=== PATIENT | male | born 1970 | race Caucasian/White ===

== ENCOUNTER 2019-09-24 14:17 | Outpatient (CLI) | payer BC, OTHER ==
--- NOTE | 2019-09-25 14:33 | XRAY Report ---
Reason: RIGHT SHOULDER PAIN Procedure Date: 09/24/2019 Accession Number: [id number] / [id number] Procedure: WCP - Shoulder 2 View RT CPT Code: Final Report FULL RESULT: EXAM: RIGHT SHOULDER RADIOGRAPHY EXAM DATE: 09/24/2019 02:17 PM. CLINICAL HISTORY: RIGHT SHOULDER PAIN. COMPARISON: None. TECHNIQUE: 2 views. FINDINGS: Bones: No fracture. No bone lesion. Decreased acromiohumeral interval. Joints: The glenohumeral and acromioclavicular joints are normal. Soft tissues: The visualized hemithorax is unremarkable. No soft tissue swelling. IMPRESSION: 1. No fracture or dislocation. 2. Decreased acromiohumeral interval may indicate rotator cuff tendinopathy or tear [facility]
--- NOTE | 2019-09-25 14:34 | XRAY Report ---
Reason: LEFT SHOULDER PAIN Procedure Date: 09/24/2019 Accession Number: [id number] / [id number] Procedure: WCP - Shoulder 2 View LT CPT Code: Final Report FULL RESULT: EXAM: LEFT SHOULDER RADIOGRAPHY EXAM DATE: 09/24/2019 02:17 PM. CLINICAL HISTORY: LEFT SHOULDER PAIN. COMPARISON: None. TECHNIQUE: 2 views. FINDINGS: Bones: No fracture. No bone lesion. Decreased acromiohumeral interval. Joints: No dislocation. Glenohumeral osteoarthritis with humeral head osteophytosis. Soft tissues: The visualized hemithorax is unremarkable. No soft tissue swelling. IMPRESSION: 1. No fracture or dislocation. 2. Glenohumeral osteoarthritis. 3. Decreased acromiohumeral interval may indicate rotator cuff tendinopathy or tear [facility]
== END 2019-09-24 23:59 | disposition home or self-care (01) ==
LOC: DI.WCP 14:17
PROVIDERS: ATTEND Family Medicine
DX: M25.511 Pain in right shoulder (principal); M19.012 Primary osteoarthritis, left shoulder

== ENCOUNTER 2019-12-08 15:33 | Outpatient (CLI) | payer BC ==
--- NOTE | 2019-12-09 13:14 | XRAY Report ---
Reason: COUGH Procedure Date: 12/08/2019 Accession Number: [id number] / [id number] Procedure: WCP - Chest 2 View X-Ray CPT Code: 43488 Final Report FULL RESULT: EXAM: CHEST RADIOGRAPHY EXAM DATE: 12/08/2019 03:33 PM. CLINICAL HISTORY: COUGH. Duration 3 weeks. COMPARISON: None. TECHNIQUE: 2 views. FINDINGS: Lungs/Pleura: No focal opacities evident. No pleural effusion. No pneumothorax. Normal volumes. Mediastinum: Heart and mediastinal contours are unremarkable. Other: None. IMPRESSION: Normal 2-view chest radiography. [facility]
== END 2019-12-08 23:59 | disposition home or self-care (01) ==
LOC: DI.WCP 15:33
PROVIDERS: ATTEND Physician Assistant Medical
DX: R05 Cough (principal)
CPT/HCPCS: 71046

== ENCOUNTER 2020-11-16 08:00 | Outpatient (CLI) | payer BC ==
[2020-11-16 18:43] LABS: ALBUMIN/GLOBULIN RATIO 1.3 (1.0-2.2); BILIRUBIN,TOTAL 0.6 mg/dL (0.2-1.0); CALCIUM 8.9 mg/dL (8.5-10.3); CREATININE 0.9 mg/dL (0.6-1.2); TOTAL PROTEIN 7.1 g/dL (6.7-8.2)
[2020-11-16 18:59] LABS: BASOPHILS # (AUTO) 0.1 10^3/uL (0.0-0.1); EOSINOPHILS # (AUTO) 0.2 10^3/uL (0.0-0.7); EOSINOPHILS % (AUTO) 3.9 %; HGB - HEMOGLOBIN 12.5 g/dL (14.0-18.0); LYMPHOCYTES # (AUTO) 1.7 10^3/uL (1.5-3.5); LYMPHOCYTES % (AUTO) 27.1 %; MEAN CORPUSCULAR HEMOGLOBIN 26.9 pg (27.0-31.0); MEAN CORPUSCULAR VOLUME 89.5 fL (80.0-94.0); MEAN PLATELET VOLUME 11.6 fL (7.4-11.4); MONOCYTES # (AUTO) 0.7 10^3/uL (0.0-1.0); MONOCYTES % (AUTO) 10.7 %; NEUTROPHILS # (AUTO) 3.5 10^3/uL (1.5-6.6); NEUTROPHILS % (AUTO) 56.8 %; PLT - PLATELET COUNT 292 10^3/uL (130-450); RED BLOOD COUNT 4.65 10^6/uL (4.70-6.10); RED CELL DISTRIBUTION WIDTH 12.8 % (12.0-15.0); WHITE BLOOD COUNT 6.1 x10^3/uL (4.8-10.8)
== END 2020-11-16 23:59 | disposition home or self-care (01) ==
LOC: LAB.WCP 08:00
PROVIDERS: ATTEND Family Medicine
DX: R10.9 Unspecified abdominal pain (principal)
CPT/HCPCS: 36415; 80053; 82150; 83690; 85025

== ENCOUNTER 2020-11-17 08:00 | Outpatient (CLI) | payer BC ==
[2020-11-17 20:26] LABS: FECAL OCCULT BLOOD (FIT) NEGATIVE (NEGATIVE)
== END 2020-11-17 23:59 | disposition home or self-care (01) ==
LOC: LAB.WCP 08:00
PROVIDERS: ATTEND Family Medicine
DX: R10.9 Unspecified abdominal pain (principal)
CPT/HCPCS: 82274

== ENCOUNTER 2020-11-23 08:00 | Outpatient (CLI) | payer BC ==
[2020-11-23 19:13] LABS: H. PYLORIS ANTIGEN STL NEGATIVE (Negative)
== END 2020-11-23 23:59 | disposition home or self-care (01) ==
LOC: LAB.WCP 08:00
PROVIDERS: ATTEND Family Medicine
DX: R10.13 Epigastric pain (principal)
CPT/HCPCS: 87338

== ENCOUNTER 2020-11-26 07:15 | Outpatient (CLI) | payer BC ==
--- NOTE | 2020-11-26 10:40 | Ultrasound Report ---
PROCEDURE: Abdomen Complete INDICATIONS: ABDOMINAL PAIN TECHNIQUE: Real-time scanning was performed of the abdominal and retroperitoneal organs, with image documentatio n. COMPARISON: None. FINDINGS: Liver: The liver demonstrates mildly prominent size. The liver demonstrates mildly increased echogen icity, which limits ultrasound sensitivity for detection of masses. Gallbladder: No gallstones or significant sludge can be seen. The gallbladder wall does not appear th ickened. There is no specific pericholecystic fluid. The sonographic Irby's sign is negative. Biliary ducts: Intrahepatic bile ducts are non-dilated. Extrahepatic bile duct caliber measures 4 m m. Normal is 6-7 mm or less in diameter, or 10 mm or less post-cholecystectomy. Pancreas: Visualized portions of the pancreas are sonographically normal. Spleen: Spleen is normal in size and homogeneous in echotexture. Kidneys: Kidneys are normal in size and echotexture. Right kidney measures 10.7 cm long; left kidne y measures 10.8 cm long. No hydronephrosis or nephrolithiasis. No solid masses. Aorta: Visualized aorta is normal in caliber at less than 3 cm. Iliacs: Proximal common iliac arteries are normal in caliber at less than 2.5 cm. IVC: Intrahepatic inferior vena cava is patent. Miscellaneous: No free abdominal fluid. IMPRESSION: The gallbladder demonstrates a normal sonographic appearance. No biliary dilatation is seen. Increased liver echogenicity is seen. This is nonspecific, yet it is most commonly attributed to fatt y infiltration. Reviewed by: Bear Choe MD on 11/26/2020 9:39 AM [facility] Approved by: Bear Choe MD on 11/26/2020 9:39 AM [facility] Station ID: [id number]
== END 2020-11-26 07:16 | disposition home or self-care (01) ==
LOC: DI 07:15
PROVIDERS: ATTEND Family Medicine
DX: R10.9 Unspecified abdominal pain (principal)

== ENCOUNTER 2020-12-23 15:47 | Outpatient (CLI) | payer BC ==
--- NOTE | 2020-12-26 09:58 | MRI Report ---
PROCEDURE: Shoulder LT W/O INDICATIONS: L SHLDR IMPINGEMENT SYNDROME TECHNIQUE: Noncontrast oblique coronal T2 fast spin echo with fat saturation, oblique sagittal T1 spin echo and T2 fast spin echo with fat saturation, axial T1 spin echo and T2 fast spin echo with fat saturation t hrough the shoulder. COMPARISON: Shoulder radiographs 09/24/2019. FINDINGS: Image quality: Excellent. Rotator cuff: There is moderate supraspinatus tendinosis and mild infraspinatus tendinosis. The catrachito s minor and subscapularis tendons are intact. There is no significant rotator cuff muscle atrophy. Bones and bursae: No acute bone marrow contusions or fractures. Chronic traction cystic changes are seen at the posterosuperior humeral head. Full-thickness cartilage loss is seen at the superior media l humeral head with subchondral cystic changes. There is also full-thickness cartilage loss in the po sterior portion of the glenoid with subchondral cystic changes and remodeling of the articular surfac e. No significant glenoid retroversion or anteversion is seen. Marginal osteophytes are seen in the g lenoid rim and the inferior humeral head. Mild degenerative changes are seen at the acromioclavicular joint. No pathologic subacromial/subdeltoid bursal fluid is present. There is a small glenohumeral joint effusion. Capsule and soft tissues: There is circumferential labral degeneration with superimposed nondisplace d tearing of the posterosuperior and superior labrum with a 3 mm paralabral cyst posterosuperiorly. T he long head of the biceps tendon demonstrates mild tendinosis. There is partial effacement of the n ormal fat signal in the rotator interval. The inferior glenohumeral ligament is normal in thickness. IMPRESSION: 1. Moderate to severe degenerative changes in the glenohumeral joint with full-thickness cartilage l oss, subchondral cystic changes, marginal osteophyte formation, and mild remodeling of the articular surfaces without significant glenoid retroversion. 2. Circumferential labral degeneration with nondisplaced tearing of the posterosuperior to superior labrum with a small 3 mm paralabral cyst. 3. Moderate supraspinatus tendinosis and mild infraspinatus tendinosis. 4. Mild biceps long head tendinosis. 5. Small glenohumeral joint effusion. Reviewed by: Gerald Harris MD on 12/26/2020 9:57 AM PST Approved by: Gerald Harris MD on 12/26/2020 9:57 AM PST Station ID: [id number]
== END 2020-12-23 15:48 | disposition home or self-care (01) ==
LOC: DI 15:47
PROVIDERS: ATTEND Physician Assistant Medical
DX: M75.42 Impingement syndrome of left shoulder (principal); M19.012 Primary osteoarthritis, left shoulder; S43.492A Other sprain of left shoulder joint, initial encounter; M75.82 Other shoulder lesions, left shoulder

== ENCOUNTER 2021-01-12 07:00 | Outpatient (CLI) | payer BC ==
--- NOTE | 2021-01-12 13:40 | XRAY Report ---
PROCEDURE: Shoulder 3 View LT INDICATIONS: SHOULDER IMPINGMENT SYNDROME, LEFT TECHNIQUE: 4 views of the shoulder were acquired. COMPARISON: None. FINDINGS: Bones: No fractures or dislocations. No suspicious bony lesions. Visualized ribs appear intact. Soft tissues: No suspicious soft tissue calcifications. IMPRESSION: No trauma found, mild degenerative osteoarthritic change at the AC joint, moderate such degeneration at the glenohumeral joint. Reviewed by: Leonard Alcantara MD on 01/12/2021 1:39 PM [facility] Approved by: Leonard Alcantara MD on 01/12/2021 1:39 PM [facility] Station ID: [id number]
== END 2021-01-12 23:59 | disposition home or self-care (01) ==
LOC: DI.N 07:00
PROVIDERS: ATTEND Orthopaedic Surgery
DX: M75.42 Impingement syndrome of left shoulder (principal); M19.012 Primary osteoarthritis, left shoulder